=== PATIENT | male | born 1980 | race Caucasian/White ===

== ENCOUNTER 2018-08-19 19:36 | Emergency (ER) | payer SELFPAY ==
--- NOTE | 2018-08-19 19:59 | ED.PDOC ---
History of Present Illness - General Chief Complaint: Neck Injury/Pain Stated Complaint: neck pain Time Seen by Provider: 08/19/18 19:51 Source: patient Exam Limitations: no limitations - History of Present Illness Initial Comments: Pt awoke with pain and stiffness in his neck today. Pt has had no known injury. denies URI or sorethroat Severity: severe Improving Factors: immobilization Worsening Factors: movement Associated Symptoms: denies symptoms Allergies/Adverse Reactions: Allergies NO KNOWN ALLERGY Allergy (Verified 01/30/15 14:10) Home Medications: Ambulatory Orders Acetaminophen W/ Codeine [Tylenol W/ CODEINE #3] 1 ea PO Q4HR PRN #20 08/19/18 Orphenadrine Citrate 60 mg IJ BID PRN #10 capsule 08/19/18 Review of Systems - Review of Systems Constitutional: Denies: chills, fever EENTM: Denies: ear pain, nose congestion, throat pain Respiratory: States: no symptoms reported Skin: States: no symptoms reported Neurological: Denies: headache, numbness, paresthesia Past Medical History (General) - Patient Medical History Hx Stroke: No Hx Congestive Heart Failure: No Hx Diabetes: No Hx MRSA: No Surgical History: no surgical history - Vaccination History Hx Tetanus, Diphtheria Vaccination: Yes Hx Influenza Vaccination: No - Social History Hx Tobacco Use: Yes - Triage Comment ED Triage Comment: awoke with stiffness and pain in neck. 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 Copy, Patient Portal Self Enrollment Referrals: Parish Miguel MD [Primary Care Provider] - 1-2 Weeks Prescriptions: Acetaminophen W/ Codeine [Tylenol W/ CODEINE #3] 1 ea PO Q4HR PRN #20 PRN Reason: Moderate To Severe Pain Orphenadrine Citrate 60 mg IJ BID PRN #10 capsule PRN Reason: Muscle Spasms Home Medications: Ambulatory Orders Acetaminophen W/ Codeine [Tylenol W/ CODEINE #3] 1 ea PO Q4HR PRN #20 08/19/18 Orphenadrine Citrate 60 mg IJ BID PRN #10 capsule 08/19/18
[2018-08-19] MEDS ORDERED: MORPHINE SULFATE INJ 10 MG/ML VIAL IM ONE (20:08)
[2018-08-19] MEDS ORDERED: ONDANSETRON 4 MG TAB PO ONE (20:10)
[2018-08-19 20:29] VITALS: BP 128/72; TEMP 98.1; O2SAT 99
== END 2018-08-19 20:28 | disposition home or self-care (01) ==
LOC: ER 19:36
DX: S16.1XXA Strain of muscle, fascia and tendon at neck level, initial encounter (principal); Z87.891 Personal history of nicotine dependence; X58.XXXA Exposure to other specified factors, initial encounter; Y92.9 Unspecified place or not applicable
CPT/HCPCS: J2060; J2270